=== PATIENT | female | born 1990 | race Caucasian/White ===

== ENCOUNTER 2024-10-19 14:06 | Emergency (ER) | payer SELFPAY ==
[~2024-10-19] VITALS: Ht 170.2 cm; Wt 73.0 kg
[2024-10-19 14:19] VITALS: BP 118/80; TEMP 98.2
[2024-10-19 14:41] LABS: APPEARANCE,URINE CLOUDY (CLEAR); BILIRUBIN,URINE 2+ (NEGATIVE); BLOOD, URINE 3+ Ery/uL (NEGATIVE); COLOR,URINE BROWN (YELLOW); KETONES,URINE 1+ mg/dL (NEGATIVE); LEUKOCYTE ESTERASE ,URINE 2+ (NEGATIVE); NITRITE, URINE POSITIVE (NEGATIVE); PH,URINE 6.5 (5.0-8.0); PROTEIN,URINE 3+ mg/dl (NEGATIVE); UGLUCOSE TRACE mg/dL (NEGATIVE)
[2024-10-19 14:45] LABS: PREGNANCY TEST URINE QUAL NEGATIVE (NEGATIVE)
[2024-10-19 14:47] LABS: ADD URINE CULTURE YES; BACTERIA,URINE Few /HPF (None Seen); RBC,URINE TOO NUMEROUS TO COUN /HPF (0-2); SQUAMOUS EPITHELIAL CELL,UR None Seen /HPF (None Seen)
[2024-10-19] MEDS ORDERED: CEPH500T PO (14:57)
[2024-10-19 15:24] VITALS: O2SAT 97
== END 2024-10-19 15:25 | disposition home or self-care (01) ==
LOC: ER 15:01
DX: N39.0 Urinary tract infection, site not specified (principal); R31.9 Hematuria, unspecified; K92.1 Melena; R39.15 Urgency of urination; J45.909 Unspecified asthma, uncomplicated
CPT/HCPCS: 81001; 82962-TC; 84703-TC; 87086-TC